=== PATIENT | male | born 1940 | race Caucasian/White ===

== ENCOUNTER 2017-04-25 16:04 | Inpatient (IN) | payer MEDICARE ==
[~2017-04-25] VITALS: Ht 170.2 cm; Wt 174.8 kg
[2017-04-25] MEDS ORDERED: NALOXONE HCL 1 MG/ML 2 ML SYG ONE (16:12)
[2017-04-25] MEDS ORDERED: DEXTROSE 50%-WATER 25 GM/50 ML SYRINGE IVP ONE ×5 (16:13→17:45)
[2017-04-25] MEDS ORDERED: 0.9% SODIUM CHLORIDE 10 ML SYRINGE IVP PRN (16:15)
[2017-04-25] MEDS ORDERED: DEXTROSE 5%-0.9% SODIUM CHL 1,000 ML IV ONE (16:30)
[2017-04-25] MEDS ORDERED: IPRA3AMP4 IH (16:31)
[2017-04-25] MEDS ORDERED: METO25TA6 PO (16:31)
[2017-04-25] MEDS ORDERED: INSU100C6 SQ (16:31)
[2017-04-25] MEDS ORDERED: DOCU-174 PO (16:31)
[2017-04-25] MEDS ORDERED: HEPA500035 SQ (16:31)
[2017-04-25] MEDS ORDERED: [UNRECOGNIZED DRUG - CODE] SQ (16:31)
[2017-04-25] MEDS ORDERED: ASPI81TA2 PO (16:31)
[2017-04-25] MEDS ORDERED: THEO100C PO (16:31)
[2017-04-25] MEDS ORDERED: [UNRECOGNIZED DRUG - OTHER] SQ (16:31)
[2017-04-25] MEDS ORDERED: MAGN400T6 PO (16:31)
[2017-04-25] MEDS ORDERED: TRAM50TA4 PO (16:31)
[2017-04-25 16:52] LABS: GLUCOSE,POINT OF CARE 125 MG/DL (70-110)
[2017-04-25 16:52] LABS: GLUCOSE,POINT OF CARE 63 MG/DL (70-110)
[2017-04-25 16:58] LABS: ANION GAP 28 mmol/L (8-16); CALCIUM, TOTAL 7.8 mg/dL (8.8-10.5); CARBON DIOXIDE 11 mmol/L (22-29); CHLORIDE 91 mmol/L (98-107); CREATININE 2.42 mg/dL (0.60-1.30); GLOMERULAR FILTR. RATE CALC 26 mL/min (>60); SODIUM SERUM 130 mmol/L (136-145); UREA NITROGEN, BLOOD 42 mg/dL (7-18)
[2017-04-25 17:11] LABS: BASOPHILS # (AUTO) 0.02 K/uL (0.00-0.20); BASOPHILS % (AUTO) 0.2 % (0.0-2.0); EOSINOPHILS # (AUTO) 0.02 K/uL (0.00-0.70); EOSINOPHILS % (AUTO) 0.16 % (1.0-6.0); HEMATOCRIT 39.1 % (41-53); HEMOGLOBIN 12.1 g/dL (13.5-17.5); MEAN CORPUSCULAR HEMOGLOBIN 30.1 pg (26.0-34.0); MEAN CORPUSCULAR VOLUME 97 fL (80-100); MONOCYTES # (AUTO) 0.2 K/uL (0.1-1.0); MONOCYTES % (AUTO) 1.6 % (2.0-9.0); PLATELET COUNT (AUTO) 225 K/uL (150-450); RED BLOOD CELL COUNT(AUTO) 4.03 MIL/uL (4.50-5.90); RED CELL DISTRIBUTION WIDTH 17.1 % (11.5-14.5); WHITE BLOOD COUNT (AUTO) 11.2 K/uL (4.5-11.0)
[2017-04-25 17:12] LABS: GLUCOSE,POINT OF CARE 116 MG/DL (70-110)
[2017-04-25 17:18] LABS: NEUTROPHILS % (AUTO) 89.1 % (40.0-70.0)
[2017-04-25 17:19] LABS: LACTIC ACID 16.5 mmol/L (0.4-2.0)
[2017-04-25 17:24] LABS: ALANINE AMINOTRANSFERASE 125 U/L (12-78); ALBUMIN 2.3 g/dL (3.4-5.0); ASPARTATE AMINOTRANSFERASE 773 U/L (15-37); BILIRUBIN,TOTAL 2.2 mg/dL (0.1-1.0); CREATINE KINASE MB 2.1 ng/mL (0-5); CREATINE KINASE, TOTAL 90 U/L (39-308); TOTAL PROTEIN, SERUM 7.5 g/dL (6.4-8.2)
[2017-04-25 17:27] LABS: INR 2.7 (0.9-1.1); PROTHROMBIN TIME 28.7 SEC (9.4-11.6)
[2017-04-25 17:35] LABS: B-TYPE NATRIURETIC PEPTIDE 1260 pg/mL (0-100)
[2017-04-25] MEDS ORDERED: SODIUM CHLORIDE 0.9% 250 ML IV ONE (17:45)
[2017-04-25] MEDS ORDERED: LEVALBUTEROL HCL 1.25 MG/0.5 ML NEB SOLUTION NEB ONE (17:45)
[2017-04-25] MEDS ORDERED: IPRATROPIUM BROMIDE 0.5 MG/2.5 ML NEB SOLUTION NEB ONE (17:45)
[2017-04-25 17:51] LABS: RBC MORPHOLOGY COMMENT ABNORMAL RBC MORPH
[2017-04-25 18:43] LABS: REFLEX LACTIC ACID? YES YES
[2017-04-25 18:47] LABS: GLUCOSE,POINT OF CARE 80 MG/DL (70-110)
[2017-04-25 18:47] LABS: GLUCOSE,POINT OF CARE 98 MG/DL (70-110)
[2017-04-25 18:47] LABS: GLUCOSE,POINT OF CARE 114 MG/DL (70-110)
[2017-04-25 18:47] LABS: GLUCOSE,POINT OF CARE 104 MG/DL (70-110)
[2017-04-25 19:02] LABS: GLUCOSE,POINT OF CARE 115 MG/DL (70-110)
[2017-04-25] MEDS ORDERED: VANCOMYCIN HCL 1 GM/D5% WATER 200 ML IV ONE (19:30)
[2017-04-25] MEDS ORDERED: SODIUM CHLORIDE 154 MEQ in DEXTROSE 10%-WATER 1,000 ML IV ONE (19:30)
[2017-04-25 19:47] LABS: GLUCOSE COMMENT 1 Doctor Notified; GLUCOSE,POINT OF CARE 122 MG/DL (70-110)
[2017-04-25 20:39] LABS: APPEARANCE,URINE TURBID (CLEAR); GLUCOSE, URINE (UA) NEGATIVE (NEGATIVE); KETONES,URINE NEGATIVE (NEGATIVE); LEUKOCYTE ESTERASE ,URINE LARGE (NEGATIVE); PROTEIN,URINE SEE CONFIRM (NEGATIVE)
[2017-04-25 20:41] LABS: GLUCOSE,POINT OF CARE 126 MG/DL (70-110)
[2017-04-25] MEDS ORDERED: CefTRIAXone 1 GM/DEXTROSE 50 ML IV ONE (20:45)
[2017-04-25 20:49] LABS: ADD UA MICROSCOPIC YES; OCCULT BLOOD,URINE SMALL (NEGATIVE)
[2017-04-25 20:50] LABS: SQUAMOUS EPITHELIAL CELL,UR Rare /LPF (None Seen); SULFOSALICYLIC ACID,URINE 3+ (Negative); WBC,URINE Full Field /HPF (0-5)
[2017-04-25 21:45] VITALS: BP 116/47
[2017-04-25] MEDS ORDERED: TraMADol HCL 50 MG TABLET PO PRN (22:45)
[2017-04-25 23:32] VITALS: BP 110/70
[2017-04-25] MEDS ORDERED: ACETAMINOPHEN 325 MG TABLET PO PRN (23:45)
[2017-04-25] MEDS ORDERED: MORPHINE SULFATE 2 MG/ML SYRINGE IVP PRN (23:45)
[2017-04-25] MEDS ORDERED: IPRATROPIUM BROMIDE 0.5 MG/2.5 ML NEB SOLUTION NEB PRN (23:45)
[2017-04-25] MEDS ORDERED: ONDANSETRON HCL 4 MG/2 ML VIAL IVP PRN (23:45)
[2017-04-25] MEDS ORDERED: ALBUTEROL SULFATE 2.5 MG/0.5 ML NEB SOLUTION NEB PRN (23:45)
[2017-04-25] MEDS ORDERED: MAGNESIUM HYDROXIDE SUSPENSION 30 ML UDCUP PO PRN (23:45)
[2017-04-25] MEDS ORDERED: ZOLPIDEM TARTRATE 5 MG TABLET PO PRN (23:45)
[2017-04-25] MEDS ORDERED: HYDROCODONE/ACETAMINOPHEN 5-325 MG TABLET PO PRN (23:45)
[2017-04-25] MEDS ORDERED: BISACODYL 10 MG RECTAL RECTAL SUPPOSITORY PR PRN (23:45)
[2017-04-26] MEDS ORDERED: CefTRIAXone SODIUM 250 MG in DEXTROSE 5%-WATER 50 ML IV SCH ×2
[2017-04-26 01:20] LABS: ABG A-A DIFF O2 48.2 mmHg (10-20.0); ABG BASE EXCESS -22.5 mmol/L (-2.0-3.0); ABG OXYHEMOGLOBIN 94.4 % (94.0-100.0); ABG PCO2 25 mmHg (35-45); TEMPERATURE, FAHRENHEIT, BG 98.6 FAHREN (96.0-98.6)
[2017-04-26 01:22] LABS: ABG HCO3 9.3 mmol/L (22.0-26.0); ABG PH 7.089 (7.35-7.450); ALLEN TEST, BLOOD GAS Positive
[2017-04-26 01:23] LABS: IPAP, BG 10 cm H2O
[2017-04-26] MEDS: HEPARIN SODIUM,PORCINE 5,000 UNITS/ML VIAL SQ SCH ×2 (01:54→08:51)
[2017-04-26] MEDS: DEXTROSE 5%-0.9% SODIUM CHL 1,000 ML IV SCH ×2 (02:42→10:59)
[2017-04-26] MEDS ORDERED: SODIUM CHLORIDE 0.9% 250 ML IV ONE (04:30)
[2017-04-26 04:46] VITALS: BP 60/45
[2017-04-26 04:55] VITALS: BP 90/60
[2017-04-26] MEDS ORDERED: SODIUM CHLORIDE 0.9% 500 ML IV ONE (05:00)
[2017-04-26 05:43] VITALS: BP 110/75
[2017-04-26] MEDS ORDERED: PIPERACILLIN/TAZO 3.375 GM/D5W 50 ML IV SCH (06:30)
[2017-04-26 07:40] VITALS: BP 74/43
[2017-04-26] MEDS ORDERED: VANCOMYCIN HCL 1 GM/D5% WATER 200 ML IV SCH (08:00)
[2017-04-26 08:52] LABS: ALBUMIN 2.1 g/dL (3.4-5.0); BILIRUBIN,TOTAL 2.3 mg/dL (0.1-1.0); CALCIUM, TOTAL 7.7 mg/dL (8.8-10.5); CREATININE 2.54 mg/dL (0.60-1.30); TOTAL PROTEIN, SERUM 7.1 g/dL (6.4-8.2)
[2017-04-26] MEDS ORDERED: PANTOPRAZOLE SODIUM 40 MG/VIAL IVP SCH (09:00)
[2017-04-26] MEDS ORDERED: INSULIN REGULAR, HUMAN 100 UNITS/ML SQ SCH (09:00)
[2017-04-26] MEDS ORDERED: ASPIRIN 81 MG CHEWABLE TABLET PO SCH (09:00)
[2017-04-26] MEDS ORDERED: THEOPHYLLINE ANHYDROUS 100 MG PO SCH (09:00)
[2017-04-26] MEDS ORDERED: DOCUSATE SODIUM 100 MG CAPSULE PO SCH ×2 (09:00)
[2017-04-26] MEDS ORDERED: MAGNESIUM OXIDE 400 MG TABLET PO SCH (09:00)
[2017-04-26] MEDS ORDERED: INSULIN NPH,HUMAN ISOPHANE 100 UNITS/ML SQ SCH (09:00)
[2017-04-26 09:11] LABS: HEMATOCRIT 37.8 % (41-53); HEMOGLOBIN 11.4 g/dL (13.5-17.5); MEAN CORPUSCULAR HEMOGLOBIN 29.5 pg (26.0-34.0); MEAN CORPUSCULAR HGB CONC 30.1 G/dL (31.0-37.0); MEAN CORPUSCULAR VOLUME 98 fL (80-100); PLATELET COUNT (AUTO) 151 K/uL (150-450); RED BLOOD CELL COUNT(AUTO) 3.86 MIL/uL (4.50-5.90); RED CELL DISTRIBUTION WIDTH 18.6 % (11.5-14.5); WHITE BLOOD COUNT (AUTO) 17.8 K/uL (4.5-11.0)
[2017-04-26 09:51] LABS: BAND NEUTROPHILS % (MANUAL) 42 % (1-5); BASOPHILS % (MANUAL) 1 % (0-2); LYMPHOCYTES % (MANUAL) 8 % (22-44); METAMYELOCYTES % 8 % (0-0); MYELOCYTES % 5 % (0-0); REACTIVE LYMPHOCYTES 2 % (0-0); TOTAL CELLS COUNTED 100
[2017-04-26] MEDS ORDERED: SODIUM BICARBONATE 150 MEQ in DEXTROSE 5%-WATER 1,000 ML IV SCH (11:00)
[2017-04-26 11:39] VITALS: BP 111/36
[2017-04-26] MEDS ORDERED: BUMETANIDE 0.25 MG/ML 10 ML VIAL IVP SCH (14:00)
[2017-04-27 08:57] LABS: GLUCOSE COMMENT 1 Received Meds; GLUCOSE,POINT OF CARE 65 MG/DL (70-110)
[2017-04-27 15:27] LABS: GLUCOSE,POINT OF CARE 128 MG/DL (70-110)
== END 2017-04-26 15:27 | disposition expired | DRG 871 ==
LOC: EMS 16:07 → 5N 20:02
PROVIDERS: ADMIT Hospitalist; ATTEND Hospitalist
PROC: 5A09357 Assistance with Respiratory Ventilation, Less than 24 Consecutive Hours, Continuous Positive Airway Pressure (ICD-10-PCS; principal; 2017-04-26)
DX: A41.9 Sepsis, unspecified organism (principal); E43 Unspecified severe protein-calorie malnutrition; G92 Toxic encephalopathy; J96.01 Acute respiratory failure with hypoxia; N39.0 Urinary tract infection, site not specified; Z68.44 Body mass index [BMI] 60.0-69.9, adult; E87.2 Acidosis; I48.92 Unspecified atrial flutter; L03.115 Cellulitis of right lower limb; L03.116 Cellulitis of left lower limb; L03.311 Cellulitis of abdominal wall; N17.9 Acute kidney failure, unspecified; I13.0 Hypertensive heart and chronic kidney disease with heart failure and stage 1 through stage 4 chronic kidney disease, or unspecified chronic kidney disease; N18.4 Chronic kidney disease, stage 4 (severe); E11.649 Type 2 diabetes mellitus with hypoglycemia without coma; J44.9 Chronic obstructive pulmonary disease, unspecified; G47.33 Obstructive sleep apnea (adult) (pediatric); E66.01 Morbid (severe) obesity due to excess calories; Z66 Do not resuscitate; B96.89 Other specified bacterial agents as the cause of diseases classified elsewhere; E11.22 Type 2 diabetes mellitus with diabetic chronic kidney disease; I25.10 Atherosclerotic heart disease of native coronary artery without angina pectoris; I46.9 Cardiac arrest, cause unspecified; I50.9 Heart failure, unspecified; Z79.4 Long term (current) use of insulin; F17.210 Nicotine dependence, cigarettes, uncomplicated; Z79.82 Long term (current) use of aspirin
CPT/HCPCS: 82805; 82962; 83605; 87040; 87086; 87147; 93005; 93306; 93970; 94640; 94660; 96361; 96365; 96375; 96376; 99285; J0696; J1644; J2310; J2543; J3370; J3490; J7042; J7050; J7060; J7131